=== PATIENT | male | born 1990 | race African-American/Black ===

== ENCOUNTER 2018-09-03 11:29 | Emergency (ER) | payer OTHER ==
[~2018-09-03] VITALS: Ht 182.9 cm; Wt 88.0 kg
== END 2018-09-03 16:06 | disposition home or self-care (01) ==
LOC: ER 11:29
DX: R59.1 Generalized enlarged lymph nodes (principal); B27.90 Infectious mononucleosis, unspecified without complication

== ENCOUNTER 2018-09-03 15:50 | Outpatient (CLI) | payer OTHER | END 2018-09-03 15:54 | disposition home or self-care (01) | LOC: LAB 15:50 | DX: R59.0 Localized enlarged lymph nodes (principal); B27.90 Infectious mononucleosis, unspecified without complication ==